=== PATIENT | female | born 1970 | race Two or more races ===

== ENCOUNTER → 2018-09-17 | Day surgery (SDC) | payer OTHER ==
--- NOTE | 2018-09-17 13:50 | OP ---
DATE OF OPERATION: 09/17/2018 PREOPERATIVE DIAGNOSIS: Abnormal right mammography. POSTOPERATIVE DIAGNOSIS: Abnormal right mammography. PROCEDURE: Right breast stereotactic needle biopsy with clips. SURGEON: Mirela Morris MD ANESTHESIA: Local. COMPLICATIONS: None. This was a sterile procedure. INDICATIONS FOR PROCEDURE: Patient presented for a screening mammography that noted a density in the lower outer right breast without an ultrasound correlative. Therefore, my recommendation was a stereotactic needle biopsy for definitive diagnosis. The procedure was discussed with all the questions answered. PROCEDURE IN DETAIL: Patient was brought to [facility] in [place], laid prone on the Lorad table. Using the caudal approach, the density in the lower outer right breast was identified. A sterile prep was obtained. A target was chosen, there was a positive stroke margin. Using betadine and 1% lidocaine, a 9-gauge Suros device was used to take several cores from this nodule. Cores were sent to pathology in formalin. A clip was deployed in the area. Hemostasis was secured with direct pressure. Steri-Strips were used to close the incision. She tolerated the procedure well and left the breast imaging center in good condition. MIRELA MORRIS M.D. [id number]
--- NOTE | 2018-09-19 18:01 | PATH ---
Surgical Pathology Report Patient Name: [place] DOLAN [facility]. Rec. #: [id number] /Age/Gender: 1970 (Age: 48) / F Account: [id number] Location: [facility] Taken: 09/17/2018 Received: 09/17/2018 Reported: 09/19/2018 Physicians: Mirela Duval M.D. Specimen(s) Received RIGHT BREAST SPECIMEN-WITH DENSITY Clinical History Density right breast lower outer quadrant, suspicious Final Diagnosis RIGHT BREAST SPECIMEN WITH DENSITY, STEREOTACTIC BIOPSY: BREAST TISSUE WITH STROMAL FIBROSIS. Electronically Signed Royce Aguilar M.D. Gross Description Received in formalin labeled "right breast with density," are 7 humphrey-yellow, cylindrical portions of fibroadipose tissue ranging from 1.3-2.7 cm in length and averaging 0.3 cm in diameter. The specimens are submitted in toto in 2 cassettes. Time to formalin fixation: 4 minutes Total formalin fixation time: Approximately 6 hours. /09/18/2018 [facility]09/18/2018
== END | disposition home or self-care (01) ==
LOC: FMAMMOTONE 10:48
PROVIDERS: ATTEND Surgery
PROC: 0HBT3ZX Excision of Right Breast, Percutaneous Approach, Diagnostic (ICD-10-PCS; principal; 2018-09-17)
DX: N60.31 Fibrosclerosis of right breast (principal); R92.8 Other abnormal and inconclusive findings on diagnostic imaging of breast
CPT/HCPCS: 19081; 88305-TC; A4648

== ENCOUNTER 2020-12-28 08:22 | Emergency (ER) | payer OTHER ==
[2020-12-28 08:36] VITALS: BP 123/85; PULSE 82; TEMP 98.2; BMI 29.0
[2020-12-28] MEDS ORDERED: LIDOCAINE 5% TOPICAL PATCH TP ONE (08:48)
[2020-12-28] MEDS ORDERED: diazePAM 5 MG TABLET PO ONE (08:48)
[2020-12-28] MEDS ORDERED: KETOROLAC TROMETHAMINE 30 MG/1 ML VIAL IM ONE (08:48)
[2020-12-28] MEDS ORDERED: diazePAM 5 MG TABLET ONE (09:07)
[2020-12-28] MEDS ORDERED: KETOROLAC TROMETHAMINE 30 MG/1 ML VIAL ONE (09:08)
[2020-12-28] MEDS ORDERED: LIDOCAINE 5% TOPICAL PATCH ONE (09:08)
[2020-12-28 10:29] LABS: PH,URINE 5.5 (5.0-8.0); URINE APPEARANCE CLEAR; URINE BILIRUBIN NEGATIVE (NEGATIVE); URINE COLOR YELLOW; URINE GLUCOSE (UA) NEGATIVE (NEGATIVE); URINE KETONE NEGATIVE (NEGATIVE); URINE LEUK ESTERASE NEGATIVE (NEGATIVE); URINE NITRITE NEGATIVE (NEGATIVE); URINE PROTEIN NEGATIVE (NEGATIVE); URINE UROBILINOGEN 0.2 mg/dL (0.2-1.0)
[2020-12-28] MEDS ORDERED: LIDOCAINE PATCH REMOVAL MC ONE (22:00)
== END 2020-12-28 10:30 | disposition home or self-care (01) ==
LOC: JER 08:22
PROC: 3E0233Z Introduction of Anti-inflammatory into Muscle, Percutaneous Approach (ICD-10-PCS; principal; 2020-12-28)
DX: M54.41 Lumbago with sciatica, right side (principal)
CPT/HCPCS: 81003; 87086; 99284-25

== ENCOUNTER 2021-09-12 20:59 | Emergency (ER) | payer OTHER ==
[2021-09-12] MEDS ORDERED: SODIUM CHLORIDE 0.9% 500 ML INFUS.BAG IV ONE (21:30)
[2021-09-12] MEDS ORDERED: ACETAMINOPHEN 1000 MG/100 ML BAG IVPB ONE (21:30)
[2021-09-12] MEDS ORDERED: ACETAMINOPHEN INJECTION 100 ML IVPB ONE (21:57)
[2021-09-12 22:29] LABS: BASO % 0.3 % (0-2.0); EOS % 0.1 % (0-4.5); HEMOGLOBIN 13.3 GM/dL (10.7-15.3); LYMPH % 6.5 % (8-40); MCH 26.4 pg (25.7-33.7); MCHC 33.3 g/dl (32.0-36.0); MEAN CELL VOLUME 79.3 fl (80-96); MEAN PLT VOLUME 7.5 fl (7.5-11.1); MONO % 3.5 % (3.8-10.2); NEUT % 89.6 % (42.8-82.8); PLATELET COUNT 330 10^3/uL (134-434); RBC 5.05 M/mm3 (3.60-5.2); RDW 15.6 % (11.6-15.6); WHITE BLOOD COUNT 13.4 K/mm3 (4.0-10.0)
[2021-09-12 22:51] LABS: EPI CELLS 6 /uL (0-25.1); HYALINE CASTS 0 /uL (0-3.1); PH,URINE 8.5 (5.0-8.0); URINE APPEARANCE CLEAR; URINE BACTERIA 11 /uL (0-1359); URINE BILIRUBIN NEGATIVE (NEGATIVE); URINE COLOR YELLOW; URINE GLUCOSE (UA) NEGATIVE (NEGATIVE); URINE KETONE NEGATIVE (NEGATIVE); URINE LEUK ESTERASE NEGATIVE (NEGATIVE); URINE NITRITE NEGATIVE (NEGATIVE); URINE PROTEIN NEGATIVE (NEGATIVE); URINE RBC 83 /uL (0-23.9); URINE UROBILINOGEN 0.2 mg/dL (0.2-1.0); URINE WBC 2 /uL (0-25.8)
[2021-09-12 22:56] LABS: ALBUMIN 3.5 g/dl (3.4-5.0); CALCIUM 8.8 mg/dL (8.5-10.1); MAGNESIUM 2.1 mg/dL (1.8-2.4)
[2021-09-12 22:57] LABS: BLOOD UREA NITROGEN 9.5 mg/dL (7-18)
[2021-09-12 23:01] LABS: BILIRUBIN,TOTAL 0.5 mg/dL (0.2-1); TOT PROT 7.9 g/dl (6.4-8.2)
[2021-09-12 23:05] LABS: LACTIC ACID 2.1 mmol/L (0.4-2.0)
[2021-09-12 23:31] LABS: INR 1.09 (0.83-1.09); PROTHROMBIN TIME (PATIENT) 12.5 SEC (9.7-13.0)
[2021-09-13 01:10] VITALS: TEMP 98.1
[2021-09-13 02:26] VITALS: BP 121/77; PULSE 104
== END 2021-09-13 02:26 | disposition home or self-care (01) ==
LOC: JER 20:59
PROC: 3E0333Z Introduction of Anti-inflammatory into Peripheral Vein, Percutaneous Approach (ICD-10-PCS; principal; 2021-09-12)
DX: D25.9 Leiomyoma of uterus, unspecified (principal); N93.9 Abnormal uterine and vaginal bleeding, unspecified; R10.32 Left lower quadrant pain
CPT/HCPCS: 36415; 74174-TC; 80053; 81003; 83605; 83690; 83735; 84703; 85025; 85610; 85730; 87086; 99284-25

== ENCOUNTER 2021-11-26 14:58 | Emergency (ER) | payer OTHER ==
[2021-11-26 15:08] VITALS: BP 126/90; PULSE 75; TEMP 97.9; BMI 31.1
[2021-11-26] MEDS ORDERED: LIDOCAINE 5% TOPICAL PATCH TP ONE (15:47)
[2021-11-26] MEDS ORDERED: ACETAMINOPHEN 500 MG TABLET (FP) PO ONE (15:47)
[2021-11-26] MEDS ORDERED: diazePAM 5 MG TABLET PO ONE (15:47)
[2021-11-26] MEDS ORDERED: KETOROLAC TROMETHAMINE 30 MG/1 ML VIAL IM ONE (15:47)
[2021-11-26] MEDS ORDERED: LIDOCAINE 5% TOPICAL PATCH ONE (16:07)
[2021-11-26] MEDS ORDERED: KETOROLAC TROMETHAMINE 30 MG/1 ML VIAL ONE (16:07)
[2021-11-26] MEDS ORDERED: diazePAM 5 MG TABLET ONE (16:07)
[2021-11-26] MEDS ORDERED: ACETAMINOPHEN 500 MG TABLET (FP) ONE (16:11)
[2021-11-26] MEDS ORDERED: LIDOCAINE PATCH REMOVAL MC SCH (22:00)
== END 2021-11-26 19:03 | disposition home or self-care (01) ==
LOC: JER 14:58
PROC: 3E0233Z Introduction of Anti-inflammatory into Muscle, Percutaneous Approach (ICD-10-PCS; principal; 2021-11-26)
DX: M54.2 Cervicalgia (principal)
CPT/HCPCS: 72125-TC; 73030-TC-RT-FY; 93005; 93010; 99285-25

== ENCOUNTER 2021-11-27 19:29 | Emergency (ER) | payer OTHER ==
[2021-11-27 20:01] VITALS: BP 146/94; TEMP 98.6; BMI 32.1
[2021-11-27] MEDS ORDERED: METHOCARBAMOL 750 MG TAB PO ONE (21:51)
[2021-11-27] MEDS ORDERED: ACETAMINOPHEN 1000 MG/100 ML BAG IVPB ONE (21:51)
[2021-11-27] MEDS ORDERED: ACETAMINOPHEN INJECTION 100 ML IVPB ONE (22:01)
[2021-11-27] MEDS ORDERED: METHOCARBAMOL 500 MG TABLET ONE (22:01)
[2021-11-27 23:43] VITALS: PULSE 80
== END 2021-11-27 23:43 | disposition home or self-care (01) ==
LOC: JER 19:29
PROC: 3E0333Z Introduction of Anti-inflammatory into Peripheral Vein, Percutaneous Approach (ICD-10-PCS; principal; 2021-11-27)
DX: R51.9 Headache, unspecified (principal)
CPT/HCPCS: 96374; 99284-25

== ENCOUNTER 2021-12-05 01:47 | Emergency (ER) | payer OTHER ==
[2021-12-05 02:26] VITALS: TEMP 98.8; BMI 33.0
[2021-12-05] MEDS ORDERED: DEXAMETHASONE SOD PHOSPHATE 10 MG/1 ML VIAL IVPUSH ONE (02:43)
[2021-12-05] MEDS ORDERED: KETOROLAC TROMETHAMINE 15 MG/ML VIAL IVPUSH ONE (02:43)
[2021-12-05] MEDS ORDERED: DEXAMETHASONE SOD PHOSPHATE 10 MG/1 ML VIAL ONE (02:47)
[2021-12-05] MEDS ORDERED: LIDOCAINE 5% TOPICAL PATCH TP ONE (02:48)
[2021-12-05] MEDS ORDERED: KETOROLAC TROMETHAMINE 15 MG/ML VIAL ONE (02:48)
[2021-12-05] MEDS ORDERED: LIDOCAINE 5% TOPICAL PATCH ONE (02:58)
[2021-12-05 04:00] VITALS: BP 105/68; PULSE 65
[2021-12-05] MEDS ORDERED: LIDOCAINE PATCH REMOVAL MC SCH (22:00)
== END 2021-12-05 04:21 | disposition home or self-care (01) ==
LOC: JER 01:47
PROC: 3E033GC Introduction of Other Therapeutic Substance into Peripheral Vein, Percutaneous Approach (ICD-10-PCS; principal; 2021-12-05)
PROC: 3E0333Z Introduction of Anti-inflammatory into Peripheral Vein, Percutaneous Approach (ICD-10-PCS; 2021-12-05)
DX: M62.838 Other muscle spasm (principal)
CPT/HCPCS: 71250-TC; 96374; 96375; 99284-25; J1100

== ENCOUNTER 2021-12-07 04:26 | Emergency (ER) | payer OTHER ==
[2021-12-07 04:37] VITALS: BP 128/88; PULSE 104; TEMP 97.9; BMI 32.1
[2021-12-07] MEDS ORDERED: LIDOCAINE 5% TOPICAL PATCH TP ONE (05:26)
[2021-12-07] MEDS ORDERED: LIDOCAINE 5% TOPICAL PATCH ONE (05:33)
[2021-12-07] MEDS ORDERED: LIDOCAINE PATCH REMOVAL MC SCH (22:00)
== END 2021-12-07 06:08 | disposition left against medical advice (07) ==
LOC: JER 04:26
DX: M54.2 Cervicalgia (principal)
CPT/HCPCS: 93005; 93010; 99283-25

== ENCOUNTER 2021-12-18 13:18 | Emergency (ER) | payer OTHER ==
[2021-12-18 13:25] VITALS: TEMP 98; BMI 32.1
[2021-12-18] MEDS ORDERED: KETOROLAC TROMETHAMINE 30 MG/1 ML VIAL IM ONE (14:54)
[2021-12-18] MEDS ORDERED: diazePAM 5 MG TABLET PO ONE (14:54)
[2021-12-18] MEDS ORDERED: LIDOCAINE 5% TOPICAL PATCH TP ONE (14:54)
[2021-12-18] MEDS ORDERED: LIDOCAINE 5% TOPICAL PATCH ONE (15:09)
[2021-12-18] MEDS ORDERED: KETOROLAC TROMETHAMINE 30 MG/1 ML VIAL ONE (15:09)
[2021-12-18] MEDS ORDERED: diazePAM 5 MG TABLET ONE (15:10)
[2021-12-18 16:53] VITALS: BP 161/105
[2021-12-18 17:53] VITALS: PULSE 97
[2021-12-18] MEDS ORDERED: LIDOCAINE PATCH REMOVAL MC SCH (22:00)
== END 2021-12-18 17:55 | disposition home or self-care (01) ==
LOC: JER 13:18
PROC: 3E0233Z Introduction of Anti-inflammatory into Muscle, Percutaneous Approach (ICD-10-PCS; principal; 2021-12-18)
DX: M54.12 Radiculopathy, cervical region (principal)
CPT/HCPCS: 99284-25